=== PATIENT | female | born 1965 | race Caucasian/White ===

== ENCOUNTER 2021-09-22 07:15 | Emergency (ER) | payer BC, SELFPAY ==
[2021-09-22] VITALS (9 sets, daily range): BP systolic 99–147; BP diastolic 62–90; PULSE 49–106; RESP 14–20; TEMP 35.8; O2SAT 94–98; BMI 23.4
--- NOTE | 2021-09-22 07:33 | ED.RN ---
pt reports inital pain was during a 2.5 miles in of a 5k on sat. cp, diaphoretic decided to walk back and not finish. since has had intermittent dull/sharp pain for few seconds at a time since. woke this am with heaviness which was new. nothing made intermittent pain better or worse. body feels shaky/jittery all over
--- NOTE | 2021-09-22 07:37 | EDS_ITS ---
HPI History of Present Illness Chief Complaint: Chest Pain Informant: patient Onset/Context/Timing Onset: Days (3) Activity at onset: sudden and exertion Timing: Intermittent Quality: Positive for Aching and Dull Location: Left Parasternal Worsened By: Nothing Relieved By: Nothing Associated Symptoms: Positive for Cough, Lightheadedness and Palpitations; Negative for Nausea, Vomiting, Diaphoresis, Dyspnea, Fever and Acid Reflux Narrative Narrative: Patient presents with chest pain that began 2 days ago while she was running a 25K race. Patient states that it is a dull and aching sensation in her left parasternal area. Patient states it has been coming and going over the last 3 days. Patient states that nothing seems to make it worse and nothing makes it better. Patient is still mild cough. Patient states she did get lightheaded and dizzy with the pain initially. Patient also admits to some palpitations. Patient is a smoker. Patient denies any other cardiac or PE risk factors. CVD Risk Factors: Positive for Smoking; Negative for Hypertension, Diabetes, Hypercholesterolemia and Family History 1' </=55 PE Risk Factors: Negative for Recent Travel/Surgery, Recent Immobilization, Prior DVT or PE and Cancer PFSH PFSH Medical History no medical history Allergy/AdvReac Type Severity Reaction Status Date / Time No Known Allergies Allergy Verified 09/22/21 07:19 Surgical History no surgical history Social History (Updated 09/22/21 @ 07:[address] Bonilla Morrison, ) Smoking Status: Light Smoker (<10/day) ROS [facility] ED Constitutional Constitutional ED: Denies chills or fever(s) Eyes Eyes: Denies blurry vision or change in vision ENT ENT ED: Denies rhinorrhea or sore throat Cardiovascular Cardiovascular: Reports chest pain and palpitations Respiratory/Chest Respiratory/Chest: Reports cough; Denies dyspnea Gastrointestinal Gastrointestinal: Denies abdominal pain, nausea or vomiting Genitourinary Genitourinary ED: Denies dysuria or hematuria Musculoskeletal Musculoskeletal: Reports back pain and neck pain Integumentary Denies abscess or rash Neurologic Neurologic: Reports headache(s); Denies weakness Allergic/Immunologic Allergic/Immunologic ED: Denies mouth swelling or urticaria EXAM Physical Exam Const Vital Signs: 09/22/21 07:16 09/22/21 07:30 09/22/21 07:31 Temperature 96.5 F L Temperature Source Temporal Pulse Rate 106 H 77 Respiratory Rate 16 20 H Respiratory Effort Normal Blood Pressure 137/83 H 147/90 H Blood Pressure Mean 101 109 Pulse Ox 98 98 Oxygen Delivery Method Room Air Room Air 09/22/21 08:21 09/22/21 09:08 09/22/21 10:21 Temperature Temperature Source Pulse Rate 59 L 49 L 62 Respiratory Rate 16 17 19 H Respiratory Effort Blood Pressure 102/79 106/62 126/78 H Blood Pressure Mean 86 76 94 Pulse Ox 97 97 97 Oxygen Delivery Method Room Air 09/22/21 11:24 09/22/21 11:39 09/22/21 11:46 Temperature Temperature Source Pulse Rate 66 66 60 Respiratory Rate 15 17 Respiratory Effort Blood Pressure 101/76 101/76 102/66 Blood Pressure Mean 84 78 Pulse Ox 96 94 Oxygen Delivery Method Room Air Room Air 09/22/21 12:37 Temperature Temperature Source Pulse Rate 59 L Respiratory Rate 14 Respiratory Effort Blood Pressure 99/74 Blood Pressure Mean 82 Pulse Ox 95 Oxygen Delivery Method Room Air Positive well nourished and well developed General Appearance ED: well developed HEENT Reports moist mucous membranes normocephalic and atraumatic Neck supple and no JVD Chest Wall palpation of chest normal Resp normal respiratory effort and clear to auscultation bilaterally Effort and Inspection: Negative for respiratory distress Cardio regular rate, regular rhythm and no murmurs GI normal to inspection, nondistended, normoactive bowel sounds, soft to palpation, non-tender and non-distended Extremity normal to inspection General Extremety ED: Negative for edema or tenderness General Extremity: Negative for edema Neuro oriented x3, CN's II-XII intact bilaterally and no sensory deficits noted Sensorium / Orientation: awake and alert Motor Exam: strength 5/5 throughout Psych mental status grossly normal Heart Score History: Moderately Suspicious ECG: Nonspecific Repolarization Age: >45 - <65 years Risk Factors: 1 or 2 Risk Factors Troponin: </= Normal Limit Score: 4 MDM MDM MDM Narrative Medical decision making narrative: EKG was obtained. On my interpretation, it showed a normal sinus rhythm with a rate of 76. MT interval, QRS interval, and QTc intervals were all normal. [place] was normal. There is left ventricular hypertrophy noted. There are nonspecific ST-T wave changes. Portable 1 view chest x-ray was obtained. On my interpretation, lung burton are clear. There is normal cardiac silhouette. Bony thorax is normal. There is no acute process noted. Radiologist also interpreted the x-ray and agrees. CBC was within normal limits. Basic metabolic profile was essentially within normal limits. Initial high-sensitivity troponin was normal at 48. TSH was 1.65. Case was discussed with the hospitalist. He discussed the case with Dr. Grajdea, beam dyer recessed vat on-call. He recommended getting a CTA of the chest with a heart score and if this is normal, patient can be discharged safely. This was ordered and is pending. CTA of the chest was within normal limits. Patient was advised of her findings. Patient was instructed to take Tylenol or ibuprofen as needed for further pain. Patient was instructed to follow-up with her primary care physician in 5 to 7 days. Patient understood and was agreeable with the plan. All questions were answered. Lab Data Attestation: I reviewed the patient's lab results. Labs: Laboratory Results - last 24 hr 09/22/21 09/22/21 09/22/21 07:30 07:30 09:30 WBC 7.2 RBC 4.64 Hgb 14.3 Hct 42.6 MCV 91.8 MCH 30.8 MCHC 33.6 RDW Std Deviation 46.4 H RDW Coeff of Isaias 13.6 Plt Count 166 MPV 10.5 Immature Gran % (Auto) 0.300 Neut % (Auto) 64.3 Lymph % (Auto) 26.0 [place] % (Auto) 7.2 Eos % (Auto) 1.4 Baso % (Auto) 0.8 Absolute Neuts (auto) 4.6 Absolute Lymphs (auto) 1.87 Nucleated RBC % 0 Sodium 137 Potassium 3.8 Chloride 104 Carbon Dioxide 28.0 Anion Gap 5 BUN 18 Creatinine 0.87 Estim Creat Clear Calc 61.15 Est GFR (MDRD) Af Amer 87 Est GFR (MDRD) Non-Af 72 BUN/Creatinine Ratio 20.7 H Glucose 150 H Calcium 8.9 Troponin I High Sens 48 41 TSH 1.65 Radiography Chest X-Ray - ED: 1 View, Read by ED Physician, Read by Radiologist and Normal Diagnostic Testing: Clinical Impression(s) from Imaging Studies Chest X-Ray 09/22/21 07:56 IMPRESSION: Normal x-ray examination of the chest. Electronically Signed: David Bliss MD at 8:15 EST , Coronary Angiography CT 09/22/21 11:30 IMPRESSION: Mild degree of emphysematous changes. Increased interstitial markings at the lung bases with areas of confluence and the subpleural blebs suggestive of chronic interstitial fibrosis. Electronically Signed: David Bliss MD at 12:38 EST , EKG Initial EKG: Attestation: I personally reviewed and interpreted this EKG as follows: Interpretation: Sinus Rhythm (76) and No Acute Injury Pattern Discharge Plan Triage Chief Complaint: Chest Pain ED Provider: Bonilla Morrison Dx/Rx/DC Orders Clinical Impression: Chest pain Instructions: ED Chest Pain, Uncertain Cause Primary Care Provider: Fernando Crocker Referrals: Fernando Crocker PA [Primary Care Provider] - 3-5 Days Disposition Disposition: Home, Self Care
--- NOTE | 2021-09-22 07:44 | EKG12_ITS ---
Test Reason : CP Blood Pressure : / mmHG Vent. Rate : 076 BPM Atrial Rate : 076 BPM P-R Int : 112 ms QRS Dur : 078 ms QT Int : 364 ms P-R-T Axes : 051 062 033 degrees QTc Int : 409 ms Normal sinus rhythm with sinus arrhythmia Left ventricular hypertrophy with repolarization abnormality Abnormal ECG Confirmed by DELILAH FRANKLIN, GO ([id number]), content editor LAUREN COLEMAN ([id number]) on 09/25/2021 1:25:11 PM Referred By: GAURAV Confirmed By:GO MAZARIEGOS MD
[2021-09-22] MEDS: Aspirin 81 MG TAB.CHEW 324 MG PO (07:53)
--- NOTE | 2021-09-22 07:56 | RAD_ITS ---
STUDY: X-RAY CHEST REASON FOR EXAM: Female, 56 years old. Chest pain TECHNIQUE: Single AP portable view of the chest. COMPARISON: None. FINDINGS: EKG electrodes are seen. The lungs are clear and expanded. There is no demonstrated pleural abnormality. Normal size heart. Normal mediastinum and zander. Normal visualized pulmonary arteries. Normal visualized aortic arch and descending thoracic aorta. Normal visualized thoracic spine. Normal visualized ribs, clavicles, and shoulders. There is no demonstrated abnormality of the visualized soft tissue structures of the upper abdomen. RAD/Chest 1 View (Portable) IMPRESSION: Normal x-ray examination of the chest. Electronically Signed: David Bliss MD at 8:15 EST ,
[2021-09-22 07:57] LABS: Absolute Lymphocyte Count 1.87 X10^3/uL (0.83-4.51); Absolute Neutrophil Count 4.6 X10^3/uL (2.0-7.7); Basophil# 0.06 X10^3/uL; Basophil% 0.8 % (0-1); Eosinophils% 1.4 % (0-5); Hematocrit 42.6 % (37-47); Hemoglobin 14.3 g/dL (12.0-15.0); Lymphocyte # 1.87 X10^3/ul (0.83-4.51); Mean Corp Hgb Conc 33.6 g/dL (32-36); Mean Corpuscular Hgb 30.8 pg (27.0-32.0); Mean Corpuscular Volume 91.8 fL (81-99); Mean Platelet Vol. 10.5 fl (6.2-12.0); Monocyte# 0.52 X10^3/uL; Monocyte% 7.2 % (0-10); NRBC Flagged by Analyzer 0 % (0-5); Neutrophil # 4.63 X10^3/uL (2.7-7.7); Neutrophil % 64.3 % (47-70); Platelet Count 166 K/mm3 (150-450); RBC Distribution Width CV 13.6 % (11.6-14.6); RBC Distribution Width SD 46.4 fl (35.1-43.9); Red Blood Count 4.64 M/mm3 (4.2-5.4); White Blood Count 7.2 K/mm3 (4.4-11.0)
[2021-09-22 08:26] LABS: Anion Gap 5 (5-15); BUN 18 mg/dL (7-18); BUN/Creat Ratio 20.7 RATIO (10-20); Calcium,Total 8.9 mg/dL (8.5-10.1); Chloride 104 mmol/L (98-107); Creatinine, Serum 0.87 mg/dL (0.55-1.02); EST Glomerular Filtration Rate 72 mL/min (>60); Est Glom Filt Rate - Afr Amer 87 mL/min (>60); Estimated Creatinine Clearance 61.15 ml/min; Glucose 150 mg/dL (74-106); Potassium 3.8 mmol/L (3.5-5.1); Sodium Level 137 mmol/L (136-145); Thyroid Stim Hormone (TSH) 1.65 uIU/mL (0.358-3.74); Troponin-I HS 48 pg/mL (3.0-54.0)
[2021-09-22 10:01] LABS: Troponin-I HS 41 pg/mL (3.0-54.0)
--- NOTE | 2021-09-22 11:30 | CT_ITS ---
STUDY: CT CHEST WITHOUT CONTRAST REASON FOR EXAM: Female, 56 years old. CHEST PAIN RADIATION DOSAGE (If Supplied By Facility): CTDIvol = ( 22.96 ) mGy, DLP = ( 1176.86 ) mGycm TECHNIQUE: Transaxial imaging was performed without the administration of intravenous contrast material. Overread examination. Individualized dose optimization techniques were used for this CT. COMPARISON: None. FINDINGS: Mild degree of emphysematous changes worse in the upper lobes. Increased interstitial markings with areas of confluence in both lower lobes with the scattered subpleural blebs. Mild degree of chronic interstitial fibrosis should be ruled out. There is no demonstrated pleural abnormality. Normal heart and pericardium. Normal mediastinum. Normal hilar regions. Normal unenhanced pulmonary arteries. Normal aorta arch and descending thoracic aorta. There are mild degenerative changes of the thoracic spine. There is no demonstrated abnormality of the visualized upper abdomen. CT/Limited Chest CT w/CCTA IMPRESSION: Mild degree of emphysematous changes. Increased interstitial markings at the lung bases with areas of confluence and the subpleural blebs suggestive of chronic interstitial fibrosis. Electronically Signed: David Bliss MD at 12:38 EST ,
[2021-09-22] MEDS: Nitroglycerin SL (ED/IMG/CATH) 0.4 MG TABLET SL (11:39)
--- NOTE | 2021-09-22 13:58 | CA.SCORE ---
Calcium Scoring Coronary Calcium Scoring: High-resolution Computed Tomographic imaging of the chest was performed on [09/22/2021], with particular attention paid to the coronary arteries. Images from the examination were analyzed for the presence and extent of coronary artery calcification , using coronary calcium quantification software. The patient tolerated the procedure well and there were no complications. The results of the coronary calcification analysis are provided below. Left main coronary artery score 0 Left anterior descending artery score 0 Left circumflex artery score 0 Right coronary artery score 0. Total Agatston score 0. Calcium Scoring Interpretation: 0 No identifiable atherosclerotic plaque. Very low cardiovascular disease risk. <5% chance of presence coronary artery disease A Negative Examination 1-10 Minimal Plaque burden. Significant coronary artery disease very unlikely. 11-100 Mild plaque burden. Likely mild or minimal coronary atherosclerosis. 101-400 Moderate plaque burden Moderate non-obstructive coronary artery disease highly likely. Over 400 Extensive plaque burden. High likelihood of at least one significant coronary stenosis (>50% diameter)
--- NOTE | 2021-09-22 14:01 | CCTA.WCONT ---
CCTA w/Cont Coronary Arteries LEFT MAIN CORONARY ARTERY: Normal this arose from the left coronary cusp LEFT ANTERIOR DESCENDING CORONARY ARTERY: Left anterior descending artery did not have any significant atherosclerotic plaquing or stenosis [] LEFT CIRCUMFLEX CORONARY ARTERY: The left circumflex artery did not have any significant atherosclerotic plaquing or stenosis [] RIGHT CORONARY ARTERY: Dominant vessel with no significant atherosclerotic plaquing or stenosis [] THORACIC AORTA: Normal [] PULMONARY ARTERY: Normal size [] LEFT ATRIUM/APPENDAGE: [] MITRAL VALVE: [] AORTIC VALVE: [place] [] LEFT VENTRICLE: [] CORONARY CALCIUM SCORE: 0 The above CTA and coronary calcium score is suggestive of no significant atherosclerotic plaquing that is indicative of a very low likelihood of obstructive coronary disease. []
== END 2021-09-22 14:37 | disposition home or self-care (01) ==
PROVIDERS: Emergency Provider Emergency Medicine; PCP Physician Assistant; Visit Provider Emergency Medicine
DX: R07.89 Other chest pain (principal); F17.200 Nicotine dependence, unspecified, uncomplicated; R00.2 Palpitations; R05.9 Cough, unspecified; R42 Dizziness and giddiness
CPT/HCPCS: 71045; 75571; 75574; 76380; 80048; 84443; 84484; 85025; 93005; 99285; A4216

== ENCOUNTER 2022-06-29 10:47 | Observation (INO) | payer BC, SELFPAY ==
[2022-06-29] VITALS (9 sets, daily range): BP systolic 102–144; BP diastolic 64–97; PULSE 54–100; RESP 15–16; TEMP 36.6; O2SAT 95–99; BMI 21.2; BMI 22.8
--- NOTE | 2022-06-29 11:33 | EKG12_ITS ---
Test Reason : CP Blood Pressure : / mmHG Vent. Rate : 106 BPM Atrial Rate : 106 BPM P-R Int : 120 ms QRS Dur : 084 ms QT Int : 334 ms P-R-T Axes : 068 068 -49 degrees QTc Int : 443 ms Sinus tachycardia Confirmed by GO MAZARIEGOS MD ([id number]), communications editor LAUREN COLEMAN ([id number]) on 07/01/2022 1:11:22 PM Referred By: PL Confirmed By:GO MAZARIEGOS MD
--- NOTE | 2022-06-29 11:34 | EDS_ITS ---
HPI History of Present Illness Chief Complaint: Chest Pain Informant: patient Onset/Context/Timing Onset: Weeks (1) Activity at onset: gradual Timing: Intermittent Quality: Positive for Dull and Heaviness Location: Substernal (Lower) Worsened By: Nothing Relieved By: Nothing Associated Symptoms: Positive for Cough, Lightheadedness, Acid Reflux and Palpitations; Negative for Nausea, Vomiting, Diaphoresis, Dyspnea or Fever Narrative Narrative: Patient presents with cough, chest pain, neck pain, and shoulder pain that has been intermittent over the last week. Patient describes her pain as dull and heaviness over the lower substernal area. Patient states pain radiates up into her left shoulder and down into her left arm. Patient states nothing makes it worse and nothing makes it better. Patient states she feels lightheaded at times. Patient also admits to a cough but denies any sputum production. Patient admits to some palpitations where she feels like her heart is racing. Patient denies any diaphoresis. CVD Risk Factors: Positive for Smoking; Negative for Hypertension, Diabetes, Hypercholesterolemia or Family History 1' </=55 PE Risk Factors: Negative for Recent Travel/Surgery, Recent Immobilization, Prior DVT or PE or Cancer [facility] Medical History no medical history no medical history Home Medications NK 06/29/22 [History Last Taken Unknown] Allergy/AdvReac Type Severity Reaction Status Date / Time No Known Allergies Allergy Verified 09/22/21 07:19 Surgical History no surgical history no surgical history Social History Smoking Status: Light Smoker (<10/day) ROS [facility] ED Constitutional Constitutional ED: Denies chills or fever(s) Eyes Eyes: Reports blurry vision; Denies diplopia ENT ENT ED: Reports rhinorrhea; Denies sore throat Cardiovascular Cardiovascular: Reports chest pain and palpitations Respiratory/Chest Respiratory/Chest: Reports cough; Denies dyspnea Gastrointestinal Gastrointestinal: Denies abdominal pain, nausea or vomiting Genitourinary Genitourinary ED: Denies dysuria or hematuria Musculoskeletal Musculoskeletal: Reports back pain and neck pain Integumentary Denies abscess or rash Neurologic Neurologic: Denies headache(s) or weakness Allergic/Immunologic Allergic/Immunologic ED: Denies mouth swelling or urticaria EXAM Physical Exam Const Vital Signs: 06/29/22 10:48 06/29/22 11:00 06/29/22 11:04 Temperature 97.8 F Temperature Source Temporal Pulse Rate 100 96 Respiratory Rate 16 16 Respiratory Effort Normal Non-Labored Blood Pressure 144/97 H Blood Pressure Mean 112 Pulse Ox 99 99 Oxygen Delivery Method Room Air Room Air 06/29/22 11:33 06/29/22 13:00 Temperature Temperature Source Pulse Rate 60 Respiratory Rate 16 Respiratory Effort Blood Pressure 104/75 Blood Pressure Mean 84 Pulse Ox 97 Oxygen Delivery Method Room Air Room Air Positive well nourished and well developed General Appearance ED: well developed and NAD HEENT normocephalic and atraumatic Eyes PERRL and EOMs intact bilaterally Neck supple and no JVD Chest Wall palpation of chest normal Chest Narrative: There is mild tenderness over the lower sternum and epigastric area. There is no bony crepitance or step-off. There is no edema or ecchymosis. Resp normal respiratory effort and clear to auscultation bilaterally Effort and Inspection: Negative for respiratory distress Cardio regular rate, regular rhythm and no murmurs GI normal to inspection, nondistended, normoactive bowel sounds, soft to palpation, non-tender and non-distended Extremity normal to inspection General Extremety ED: Negative for edema or tenderness General Extremity: Negative for edema Neuro oriented x3, CN's II-XII intact bilaterally and no sensory deficits noted Sensorium / Orientation: awake and alert Motor Exam: strength 5/5 throughout Psych mental status grossly normal Heart Score History: Moderately Suspicious ECG: Nonspecific Repolarization Age: >45 - <65 years Risk Factors: 1 or 2 Risk Factors Troponin: </= Normal Limit Score: 4 MDM MDM MDM Narrative Medical decision making narrative: Patient was given baby aspirin here. EKG was obtained. On my interpretation, it showed a sinus tachycardia with a rate of 106. [place] interval, QRS interval, and QTc intervals were all normal. [place] was normal. There are nonspecific ST-T wave changes. CBC was within normal limits. Basic metabolic profile was within normal limits. Portable 1 view chest x-ray was obtained. On my interpretation, lung bur[place] are clear. There is normal cardiac silhouette. Bony thorax is normal. There is no acute process noted. Radiologist also interpreted the x- ray and agrees. High-sensitivity troponin was normal. 2-hour repeat high- sensitivity troponin was normal. Patient states she is still having some intermittent pain in her chest. In the emergency department. Patient has a HEART score of 4. Patient was advised that she should be admitted to the hospital for further evaluation. Patient is agreeable with this. Case was discussed with the hospitalist. She will admit the patient for observation. All questions were answered. Lab Data Attestation: I reviewed the patient's lab results. Labs: Laboratory Results - last 24 hr 06/29/22 06/29/22 06/29/22 11:00 11:00 14:04 WBC 10.6 RBC 4.89 Hgb 14.7 Hct 45.0 MCV 92.0 MCH 30.1 MCHC 32.7 RDW Std Deviation 45.0 H RDW Coeff of Isaias 13.2 Plt Count 177 MPV 11.1 Immature Gran % (Auto) 0.300 Neut % (Auto) 74.2 H Lymph % (Auto) 20.1 [place] % (Auto) 4.6 Eos % (Auto) 0.4 Baso % (Auto) 0.4 Absolute Neuts (auto) 7.8 H Absolute Lymphs (auto) 2.12 Nucleated RBC % 0 Sodium 137 Potassium 3.4 L Chloride 104 Carbon Dioxide 29.0 Anion Gap 4 L BUN 16 Creatinine 0.86 Estim Creat Clear Calc 61.14 Est GFR (MDRD) Af Amer 88 Est GFR (MDRD) Non-Af 73 BUN/Creatinine Ratio 18.6 Glucose 131 H Calcium 9.6 Troponin I High Sens 20 18 Radiography Chest X-Ray - ED: 1 View, Read by ED Physician, Read by Radiologist and No Acute Disease Diagnostic Testing: Clinical Impression(s) from Imaging Studies Chest X-Ray 06/29/22 11:40 IMPRESSION: Hyperinflation. The lungs are clear. Electronically Signed: David Bilss MD at 12:10 EST , EKG Initial EKG: Attestation: I personally reviewed and interpreted this EKG as follows: Interpretation: Sinus Tachycardia (106) and Non-Specific ST Changes Prior EKG tracings: available for review Prior: Changed (The nonspecific ST-T wave changes are slightly more pronounced than previous EKG dated 09/22/2021) Discharge Plan Triage Chief Complaint: Chest Pain ED Provider: Bonilla Morrison Dx/Rx/DC Orders Clinical Impression: Chest pain, Tobacco use Prescriptions: No Action NK Primary Care Provider: Fernando Crocker Referrals: Fernando Crocker, GERALD [Primary Care Provider] - Disposition Disposition: Acute Care [facility]
[2022-06-29 11:39] LABS: Absolute Lymphocyte Count 2.12 X10^3/uL (0.83-4.51); Absolute Neutrophil Count 7.8 X10^3/uL (2.0-7.7); Basophil# 0.04 X10^3/uL; Basophil% 0.4 % (0-1); Eosinophil# 0.04 X10^3/uL; Eosinophils% 0.4 % (0-5); Hemoglobin 14.7 g/dL (12.0-15.0); Lymphocyte # 2.12 X10^3/ul (0.83-4.51); Lymphocyte % 20.1 % (19-41); Mean Corp Hgb Conc 32.7 g/dL (32-36); Mean Corpuscular Hgb 30.1 pg (27.0-32.0); Mean Platelet Vol. 11.1 fl (6.2-12.0); Monocyte# 0.49 X10^3/uL; Monocyte% 4.6 % (0-10); NRBC Flagged by Analyzer 0 % (0-5); Neutrophil # 7.84 X10^3/uL (2.7-7.7); Neutrophil % 74.2 % (47-70); Platelet Count 177 K/mm3 (150-450); RBC Distribution Width CV 13.2 % (11.6-14.6); Red Blood Count 4.89 M/mm3 (4.2-5.4); White Blood Count 10.6 K/mm3 (4.4-11.0)
--- NOTE | 2022-06-29 11:40 | RAD_ITS ---
STUDY: X-RAY CHEST REASON FOR EXAM: Female, 57 years old. Chest pain TECHNIQUE: Single AP portable view of the chest. COMPARISON: Comparison is made with prior study dated 09/22/2021. FINDINGS: EKG electrodes are seen. Hyperinflation. The lungs are clear. There is no demonstrated pleural abnormality. Normal size heart. Normal mediastinum and zander. Normal visualized pulmonary arteries. Normal visualized aortic arch and descending thoracic aorta. Normal visualized thoracic spine. Normal visualized ribs, clavicles, and shoulders. There is no demonstrated abnormality of the visualized soft tissue structures of the upper abdomen. RAD/Chest 1 View (Portable) IMPRESSION: Hyperinflation. The lungs are clear. Electronically Signed: David Bliss MD at 12:10 EST ,
[2022-06-29] MEDS: Aspirin 81 MG TAB.CHEW 324 MG PO (11:44)
[2022-06-29 12:00] LABS: Anion Gap 4 (5-15); BUN 16 mg/dL (7-18); BUN/Creat Ratio 18.6 RATIO (10-20); Calcium,Total 9.6 mg/dL (8.5-10.1); Chloride 104 mmol/L (98-107); Creatinine, Serum 0.86 mg/dL (0.55-1.02); EST Glomerular Filtration Rate 73 mL/min (>60); Est Glom Filt Rate - Afr Amer 88 mL/min (>60); Estimated Creatinine Clearance 61.14 ml/min; Glucose 131 mg/dL (74-106); Potassium 3.4 mmol/L (3.5-5.1); Sodium Level 137 mmol/L (136-145); Troponin-I HS (w/2H Reflex) 20 pg/mL (3.0-54.0)
[2022-06-29 13:39] LABS: Reflex Troponin-HS? (from REC) Y
[2022-06-29 14:33] LABS: Troponin-I HS 18 pg/mL (3.0-54.0)
--- NOTE | 2022-06-29 14:57 | PCM.HP.STD ---
HPI - General General Date of Admission: 06/29/22 Date of Service: 06/29/22 Chief Complaint: Chest pain - 1 week HPI Narrative VICENTE QUEZADA, is a 57 F who presents with the above. Patient has no significant past medical history except for smoking Wednesday to Wednesday whilst at work. She comes in with complaints of left-sided chest pain that radiates to her shoulder and her arm, and then across her back. Chest pain comes on at any time even at rest, last for few minutes and goes away. He has no aggravating or relieving factors. It is associated with dizziness and some diaphoresis. She denied any history of heart disease. Her chest pain is nonreproducible. Her vitals in ED showed blood pressure 144/97, heart rate 100, respiratory 16, temperature 97.8 F, oxygen saturation 99% on room air. CBCD was unremarkable. CMP showed sodium 137, potassium 3.4, chloride 104, bicarbonate 29, BUN 16, creatinine 0.86. Troponin have been 20 and 18. Admitting chest x-ray was unremarkable. [facility] Medical History no medical history Home Medications NK 06/29/22 [History Last Taken Unknown] Allergy/AdvReac Type Severity Reaction Status Date / Time No Known Allergies Allergy Verified 09/22/21 07:19 Family History (Updated 06/29/22 @ 16:[address] Elzbieta Massey MD) Mother Diabetes Heart disease Father No problems noted. Surgical History no surgical history no surgical history Social History (Updated 06/29/22 @ 16:[address] Elzbieta Massey MD) household members: spouse leisure activities: sports and exercise Smoking Status: Light Smoker (<10/day) alcohol intake: former substance use type: does not use ROS ROS Narrative Constitutional: Denies: Anorexia, Chills, Fever, Night Sweats, Weight Change Eyes: Denies: Blurred vision, Cataracts, Conjunctivae Inflammation, Pain, Redness, Vision Change HEENT: Denies: Difficulty Hearing, Difficulty Swallowing, Head Aches, Hearing Changes, Sinus Congestion, Sinus Drainage Cardiovascular: See HPI Respiratory: Denies: Cough, Shortness of breath at rest, Sputum production Gastrointestinal: Denies: Abdominal Pain, Nausea, Vomiting Genitourinary: Denies: Dysuria Musculoskeletal: Denies: Joint Pain, Joint stiffness, Joint swelling, Joint Tenderness Skin: Denies: Rash, Wounds Neurological: Denies: Numbness, Tingling, Focal weakness Vital Signs Vital Signs Vital Signs: 06/29/22 10:48 06/29/22 11:00 06/29/22 11:04 Temperature 97.8 F Temperature Source Temporal Pulse Rate 100 96 Respiratory Rate 16 16 Respiratory Effort Normal Non-Labored Blood Pressure 144/97 H Blood Pressure Mean 112 Pulse Ox 99 99 Oxygen Delivery Method Room Air Room Air 06/29/22 11:33 06/29/22 13:00 Temperature Temperature Source Pulse Rate 60 Respiratory Rate 16 Respiratory Effort Blood Pressure 104/75 Blood Pressure Mean 84 Pulse Ox 97 Oxygen Delivery Method Room Air Room Air Weight Weight: 54.431 kg Body Mass Index (BMI) 21.2 Physical Exam Narrative Physical exam: General: Alert, Oriented x3, Cooperative, No apparent distress HEENT: Atraumatic Oral: Moist Mucosa Neck: Supple Lungs: Clear to auscultation Cardiovascular: Mild tenderness on palpating the anterior chest wall, HS I+II, regular, no murmurs Abdomen: Bowel Sounds Present, Soft, Non Tender Extremities: No edema Skin: No rashes, No breakdown Neurological: Grossly intact Psych/Mental Status: Appropriate Results Lab / Micro Data Result Diagrams: 06/29/22 11:00 06/29/22 11:00 Labs: Laboratory Results - last 24 hr 06/29/22 11:00: WBC 10.6, RBC 4.89, Hgb 14.7, Hct 45.0, MCV 92.0, MCH 30.1, MCHC 32.7, RDW Std Deviation 45.0 H, RDW Coeff of Isaias 13.2, Plt Count 177, MPV 11.1, Immature Gran % (Auto) 0.300, Neut % (Auto) 74.2 H, Lymph % (Auto) 20.1, Logan % (Auto) 4.6, Eos % (Auto) 0.4, Baso % (Auto) 0.4, Absolute Neuts (auto) 7.8 H, Absolute Lymphs (auto) 2.12, Nucleated RBC % 0 06/29/22 11:00: Sodium 137, Potassium 3.4 L, Chloride 104, Carbon Dioxide 29.0, Anion Gap 4 L, BUN 16, Creatinine 0.86, Estim Creat Clear Calc 61.14, Est GFR (MDRD) Af Amer 88, Est GFR (MDRD) Non-Af 73, BUN/Creatinine Ratio 18.6, Glucose 131 H, Calcium 9.6, Troponin I High Sens 20 06/29/22 14:04: Troponin I High Sens 18 Radiology Impression Chest X-Ray 06/29/22 11:40 IMPRESSION: Hyperinflation. The lungs are clear. Electronically Signed: David Bliss MD at 12:10 EST , Assessment & Plan Assessment/Plan (1) Chest pain: (2) Tobacco use: PLAN: Plan 1. Acute chest pain, patient with smoking history, patient with a heart score of 4 Her admitting EKG shows T wave inversions in inferior lateral leads, slight ST segment depression in V3 to V6 Her troponins have however been unremarkable Admit to PCU, trend troponin, stress test in a.m. Check lipid profile 2. Hypokalemia, replaced, recheck in a.m. 3. Nicotine dependence, smokes less than half a pack of cigarettes a day Continue replacement 4. DVT PPx-low risk; early ambulation. Charges/Coding Visit Charges OBSV E&M: 36415 Initial observation care L3
--- NOTE | 2022-06-29 18:58 | EKG12_ITS ---
Test Reason : CP ADMIT Blood Pressure : / mmHG Vent. Rate : 066 BPM Atrial Rate : 066 BPM P-R Int : 122 ms QRS Dur : 088 ms QT Int : 400 ms P-R-T Axes : 047 063 005 degrees QTc Int : 419 ms Normal sinus rhythm Nonspecific ST abnormality Abnormal ECG Confirmed by MARYLU FRANKLIN, RADHA ([id number]), makeup editor LAUREN COLEMAN ([id number]) on 07/01/2022 8:57:56 AM Referred By: LAUREN Confirmed By:RADHA VALERO MD
[2022-06-29] MEDS: Potassium Chloride Oral Tablet 20 MEQ 40 MEQ PO (19:31)
[2022-06-29 21:27] LABS: Troponin-I HS 18 pg/mL (3.0-54.0)
[2022-06-30] VITALS (7 sets, daily range): BP systolic 91–113; BP diastolic 63–88; PULSE 50–79; RESP 16–17; TEMP 36.5–36.8; O2SAT 96–98
[2022-06-30 05:17] LABS: Absolute Lymphocyte Count 2.16 X10^3/uL (0.83-4.51); Absolute Neutrophil Count 3.8 X10^3/uL (2.0-7.7); Basophil# 0.05 X10^3/uL; Basophil% 0.7 % (0-1); Eosinophil# 0.12 X10^3/uL; Eosinophils% 1.8 % (0-5); Hematocrit 41.1 % (37-47); Hemoglobin 13.8 g/dL (12.0-15.0); Lymphocyte # 2.16 X10^3/ul (0.83-4.51); Lymphocyte % 32.3 % (19-41); Mean Corp Hgb Conc 33.6 g/dL (32-36); Mean Corpuscular Hgb 30.9 pg (27.0-32.0); Mean Corpuscular Volume 91.9 fL (81-99); Monocyte# 0.51 X10^3/uL; Monocyte% 7.6 % (0-10); NRBC Flagged by Analyzer 0 % (0-5); Neutrophil # 3.84 X10^3/uL (2.7-7.7); Neutrophil % 57.5 % (47-70); Platelet Count 159 K/mm3 (150-450); RBC Distribution Width CV 13.3 % (11.6-14.6); RBC Distribution Width SD 45.3 fl (35.1-43.9); Red Blood Count 4.47 M/mm3 (4.2-5.4); White Blood Count 6.7 K/mm3 (4.4-11.0)
[2022-06-30 05:46] LABS: AST(SGOT) 12 U/L (15-37); Alanine Aminotransfer ALT/SGPT 19 U/L (13-56); Albumin, Serum 3.4 g/dL (3.2-5.0); Alkaline Phosphatase 39 U/L (45-117); Anion Gap 7 (5-15); BUN 18 mg/dL (7-18); BUN/Creat Ratio 23.1 RATIO (10-20); Chloride 108 mmol/L (98-107); Cholesterol 173 mg/dL (200); Creatinine, Serum 0.78 mg/dL (0.55-1.02); EST Glomerular Filtration Rate 81 mL/min (>60); Est Glom Filt Rate - Afr Amer 99 mL/min (>60); Estimated Creatinine Clearance 67.41 ml/min; Globulin 3.3 g/dL (2.2-4.2); Glucose 93 mg/dL (74-106); High Density Lipoprotein 55 mg/dL; Potassium 4.4 mmol/L (3.5-5.1); Protein, Total 6.7 g/dL (6.4-8.2); Sodium Level 140 mmol/L (136-145); Triglycerides 90 mg/dL; Very Low Density Lipoprotein 18 mg/dL (5-40)
[2022-06-30] MEDS: Aspirin E.C. 81 MG Tablet PO (05:49)
--- NOTE | 2022-06-30 05:50 | NURSING ---
pt having chest pain. bp in 90s unable to do nitro. ekg done. will monitor
--- NOTE | 2022-06-30 06:00 | EKG12_ITS ---
Test Reason : CP Blood Pressure : / mmHG Vent. Rate : 070 BPM Atrial Rate : 070 BPM P-R Int : 136 ms QRS Dur : 080 ms QT Int : 392 ms P-R-T Axes : 045 060 048 degrees QTc Int : 423 ms Normal sinus rhythm Normal ECG Confirmed by MARYLU FRANKLIN, RADHA ([id number]), clinical editor LAUREN COLEMAN ([id number]) on 07/01/2022 9:07:30 AM Referred By: Confirmed By:RADHA VALERO MD
--- NOTE | 2022-06-30 12:51 | STRESSREP ---
Stress Test Report Date: 06-30-2022 Procedure: Exercise tolerance test/imaging study Indications: Chest pain Consent: Per the patient Procedure: The patient exercised on a Amando protocol for 8 minutes completing Stage II and 2 minutes of Stage III achieving a peak heart rate of 171 bpm (103% predicted maximal heart rate) with resting blood pressure of 100/66 mmHg and a peak blood pressure 140/88 mmHg and a peak MET capacity of 9 METs. The baseline ECG demonstrated normal sinus rhythm. The peak exercise ECG demonstrated no obvious ECG changes. There were no cardiac dysrhythmias pretest, during exercise, or recovery. The functional capacity was considered good. There was notation of chest discomfort pretest, during exercise, and recovery. The examination was discontinued secondary to chest discomfort. Impression: 1. Technically adequate (percent predicted maximal heart rate greater than 85%) exercise tolerance test 2. Peak exercise ECG with no obvious ECG change 3. There were no cardiac dysrhythmias pretest, during exercise, or recovery 4. Nuclear images pending Myocardial perfusion imaging study: Technique: The patient was injected with 11.3 mCi of technetium 99m Cardiolite and subsequently rest SPECT Cardiolite nuclear imaging was obtained in the horizontal long, vertical long, and short axis views. The patient exercised on a Amando protocol for 8 minutes completing Stage II and 2 minutes of Stage III achieving a peak heart rate of 171 bpm (103% predicted maximal heart rate) with resting blood pressure of 100/66 mmHg and a peak blood pressure 140/88 mmHg and a peak MET capacity of 9 METs. The patient was injected with 33.0 mCi of technetium 99m Cardiolite and subsequently stress SPECT Cardiolite nuclear imaging was obtained in the horizontal long, vertical long, and short axis views. A gated Cardiolite study at peak stress was obtained. Interpretation: Rest and stress SPECT Cardiolite nuclear imaging status post realignment, normalization, and attenuation correction, demonstrates the appearance of relative uniform tracer uptake and myocardial perfusion appearing within normal limits. There is end systolic thickening and brightening. The gated Cardiolite study demonstrates myocardial thickening and inward wall motion. The reported LVEF is 60%. Impression: 1. Rest and stress SPECT Cardiolite nuclear imaging demonstrate relative uniform tracer uptake and myocardial perfusion appearing within normal limits. 2. The gated Cardiolite study reports an LVEF of 60%. This note was generated with [employer] software. It may contain incorrect words, spelling, and punctuation that were not noted in checking the note before signing.
--- NOTE | 2022-06-30 16:50 | DCINST_ITS ---
Discharge Instructions Diet Discharge Diet: No restrictions Activity Discharge Activity: Return to Normal Activity Follow Up Care Test Results: Test results from this visit will be discussed in further detail at your follow- up appointment, if applicable. Discharge Plan Admission Admit Date/Time: 06/29/22 14:55 Primary Reason for Your Visit: Chest pain Attending Provider: Dominique Helton Primary Care Provider: Fernando Crocker Consulting Providers: Elzbieta Massey Instructions Patient Instructions: ED Anxiety Reaction, ED Panic Attack Additional Instructions / Restrictions: ? Would advise smoking cessation -Please call your primary care provider's office upon discharge to schedule a hospital follow up within 1 week. -For any concerning signs or symptoms please call 911 or proceed to the nearest emergency department Discharge Orders/Prescriptions Prescriptions: No Action NK Referrals / Follow Up: Fernando Crocker, PA [Primary Care Provider] - Within 1 Week Disposition Disposition (needs filled in before D/C Order can be placed): Home, Self Care
--- NOTE | 2022-06-30 16:52 | PCM.DC.SUM ---
Providers Date of Admission: 06/29/22 Date of Discharge: 06/30/22 Primary Care Physician: GERALD Neff Reason For Visit: CHEST PAIN Diagnosis Discharge Diagnosis (1) Chest pain: Status: Acute Code(s): R07.9 - Chest pain, unspecified (2) Tobacco use: Status: Acute Code(s): Z72.0 - Tobacco use Medications at Discharge Home Medications NK 06/29/22 Hospital Course Procedures - (NM stress test) Summary of Care Provided Minutes Spent on Discharge: 20 Hospital Course: Ms. Kasper 57 F who presented 06/30/22 with chest pain. Patient has no significant past medical history except for smoking Wednesday to Wednesday whilst at work. She comes in with complaints of left-sided chest pain that radiates to her shoulder and her arm, and then across her back. Chest pain comes on at any time even at rest, last for few minutes and goes away. He has no aggravating or relieving factors. It is associated with dizziness and some diaphoresis. She denied any history of heart disease. Her chest pain is nonreproducible. Lab work-up negative and stress test negative. Discussed extensively with patient and she feels anxiety plays a large role in this. She is willing to discuss this with her primary care physician upon discharge. Physical Exam Const alert and oriented x3 General Appearance: cooperative and comfortable HEENT normocephalic and head/scalp atraumatic Eyes EOMs intact bilaterally Neck supple Resp normal respiratory effort and clear to auscultation bilaterally Cardio regular rate and regular rhythm GI soft to palpation, non-tender and non-distended Extremity normal to inspection Skin no rashes or lesions noted Neuro moves all extremities Psych affect normal Weight / BMI Weight Weight: 58.4 kg Body Mass Index (BMI) 22.8 ABG / Lab / Microbiology Data Result Diagrams: 06/30/22 04:20 06/30/22 04:20 Laboratory: Laboratory Results - last 24 hr 06/29/22 20:36: Troponin I High Sens 18 06/30/22 04:20: WBC 6.7, RBC 4.47, Hgb 13.8, Hct 41.1, MCV 91.9, MCH 30.9, MCHC 33.6, RDW Std Deviation 45.3 H, RDW Coeff of Isaias 13.3, Plt Count 159, MPV 11.0, Immature Gran % (Auto) 0.100, Neut % (Auto) 57.5, Lymph % (Auto) 32.3, Atlantic % (Auto) 7.6, Eos % (Auto) 1.8, Baso % (Auto) 0.7, Absolute Neuts (auto) 3.8, Absolute Lymphs (auto) 2.16, Nucleated RBC % 0 06/30/22 04:20: Sodium 140, Potassium 4.4, Chloride 108 H, Carbon Dioxide 25.0, Anion Gap 7, BUN 18, Creatinine 0.78, Estim Creat Clear Calc 67.41, Est GFR (MDRD) Af Amer 99, Est GFR (MDRD) Non-Af 81, BUN/Creatinine Ratio 23.1 H, Glucose 93, Calcium 9.0, Total Bilirubin 0.40, AST 12 L, ALT 19, Alkaline Phosphatase 39 L, Total Protein 6.7, Albumin 3.4, Globulin 3.3, Albumin/Globulin Ratio 1.0, Triglycerides 90, Cholesterol 173, LDL Cholesterol 100, VLDL Cholesterol 18, HDL Cholesterol 55 D/C Instructions Discharge Diet: No restrictions Meaningful Use Info Meaningful Use Diagnoses (Choose all that apply): None applicable Discharge Plan Admission Admit Date/Time: 06/29/22 14:55 Primary Reason for Your Visit: Chest pain Attending Provider: Dominique Helton Primary Care Provider: Fernando Crocker Consulting Providers: Elzbieta Massey Instructions Patient Instructions: ED Anxiety Reaction, ED Panic Attack Additional Instructions / Restrictions: ? Would advise smoking cessation -Please call your primary care provider's office upon discharge to schedule a hospital follow up within 1 week. -For any concerning signs or symptoms please call 911 or proceed to the nearest emergency department Discharge Orders/Prescriptions Prescriptions: No Action NK Referrals / Follow Up: Fernando Crocker, PA [Primary Care Provider] - Within 1 Week Disposition Disposition (needs filled in before D/C Order can be placed): Home, Self Care Charges/Coding Visit Charges OBSV E&M: 08578 Observation care discharge
== END 2022-06-30 17:10 | disposition home or self-care (01) ==
LOC: ED 15:11 → PCU 16:50
PROVIDERS: Admitting Provider Internal Medicine; Emergency Provider Emergency Medicine; PCP Physician Assistant; Visit Provider Internal Medicine
DX: R07.89 Other chest pain (principal); F17.210 Nicotine dependence, cigarettes, uncomplicated; R00.2 Palpitations; M54.9 Dorsalgia, unspecified; M25.519 Pain in unspecified shoulder; E87.6 Hypokalemia; R94.31 Abnormal electrocardiogram [ECG] [EKG]
CPT/HCPCS: 36415; 71045; 78452; 80048; 80053; 80061; 84484; 85025; 93005; 93017; 99218; 99285; A9500; A4216; G0378